=== PATIENT | male | born 1960 ===

== ENCOUNTER 2019-09-30 12:32 | Inpatient (IN) | payer OTHER ==
[~2019-09-30] VITALS: Ht 175.3 cm; Wt 97.1 kg
[~2019-09-30 12:32] MED LIST: BACITRACIN 50,000 UNIT ONE; BUPIVACAINE/PF-EPI 0.5% 1:200K ONE; HYDR-3240 PO; LISI-167 PO; METF500T17 PO; THROMBIN 20,000 UNIT VIAL TP ONE
[2019-09-30] MEDS ORDERED: LACTATED RINGERS 1,000 ML IV SCH (13:54)
[2019-09-30] MEDS ORDERED: PROPOFOL 50 ML ONE ×4 (13:57→18:20)
[2019-09-30] MEDS ORDERED: MIDAZOLAM 1 MG/ML, 2ML ONE (13:57)
[2019-09-30] MEDS ORDERED: FENTANYL PF 250 MCG/5ML ONE ×2 (13:57→16:21)
[2019-09-30] MEDS ORDERED: CHLORHEXIDINE 15 ML UDC MM ONE (14:00)
[2019-09-30] MEDS ORDERED: ACETAMINOPHEN 500 MG TABLET PO ONE (14:00)
[2019-09-30] MEDS ORDERED: GABAPENTIN 300 MG CAPSULE PO ONE (14:00)
[2019-09-30] MEDS ORDERED: NEOSTIGMINE 1 MG/ML, 10ML ONE (14:01)
[2019-09-30] MEDS ORDERED: GLYCOPYRROLATE 0.2MG/1ML, 5ML ONE (14:01)
[2019-09-30] MEDS ORDERED: PROPOFOL 10 MG/ML, 20ML ONE (14:01)
[2019-09-30] MEDS ORDERED: ROCURONIUM 10MG/ML,5ML ONE (14:01)
[2019-09-30] MEDS ORDERED: CEFAZOLIN 1,000 MG ONE (14:01)
[2019-09-30] MEDS ORDERED: CHLORHEXIDINE 15 ML UDC ONE (14:06)
[2019-09-30] MEDS ORDERED: hydrALAzine 20 MG/ML, 1ML IV PRN (15:30)
[2019-09-30] MEDS ORDERED: morphine SULFATE 10 MG/ML, 1ML IVPush PRN (15:30)
[2019-09-30] MEDS ORDERED: LABETALOL 5MG/ML, 20ML IV PRN (15:30)
[2019-09-30] MEDS ORDERED: OXYcodone 5 MG/5 ML ORAL.SOL UDC PO PRN (15:30)
[2019-09-30] MEDS ORDERED: FENTANYL PF 100 MCG/2ML IV PRN (15:30)
[2019-09-30] MEDS ORDERED: HYDROmorphone 1 MG/ML, 1ML INJ IVPush PRN (15:30)
[2019-09-30] MEDS ORDERED: ONDANSETRON 2MG/ML, 2ML IVPush PRN (15:30)
[2019-09-30] MEDS ORDERED: MEPERIDINE/PF 25MG/0.5ML IVPush PRN (15:30)
[2019-09-30] MEDS ORDERED: PHENYLEPHRINE 10 MG/ML ONE (15:55)
[2019-09-30] MEDS ORDERED: SUCCINYLCHOLINE 20 MG/ML, 10ML ONE (18:20)
[2019-09-30] MEDS ORDERED: FENTANYL PF 100 MCG/2ML ONE ×2 (18:44→20:37)
[2019-09-30] MEDS ORDERED: HYDROmorphone PCA 30 MG/30 ML IV PRN (20:30)
[2019-09-30] MEDS ORDERED: OXYcodone 5 MG/5 ML ORAL.SOL UDC ONE (20:37)
[2019-09-30] MEDS ORDERED: HYDROmorphone 1 MG/ML, 1ML INJ ONE (20:37)
[2019-09-30] MEDS ORDERED: METHOCARBAMOL 1,000 MG in DEXTROSE 5% 100 ML IV ONE ×2 (21:00→23:30)
[2019-09-30] MEDS ORDERED: METHOCARBAMOL 1000MG/10 ML IVPB PRN (21:00)
[2019-09-30] MEDS ORDERED: ZOLPIDEM 5MG TABLET PO PRN (21:00)
[2019-09-30 21:51] VITALS: BP 128/86
[2019-09-30] MEDS ORDERED: DIPHENHYDRAMINE 50 MG/ML, 1ML IM PRN (23:30)
[2019-09-30] MEDS ORDERED: MAGNESIUM HYDROXIDE 8%, 30ML UDC PO PRN (23:30)
[2019-09-30] MEDS ORDERED: DIPHENHYDRAMINE 25 MG CAPSULE PO PRN (23:30)
[2019-09-30] MEDS ORDERED: HYDROcodone/APAP 5/325 TABLET PO PRN (23:30)
[2019-09-30] MEDS ORDERED: ONDANSETRON 2MG/ML, 2ML IV PRN (23:30)
[2019-09-30] MEDS ORDERED: PROMETHAZINE 25 MG/ML, 1ML IM PRN (23:30)
[2019-09-30] MEDS ORDERED: HYDROmorphone 2 MG/ML, 1ML IM PRN (23:30)
[2019-09-30] MEDS ORDERED: HYDROmorphone 2MG TABLET PO PRN (23:30)
[2019-09-30] MEDS ORDERED: BISACODYL 10 MG SUPP PR PRN (23:30)
[2019-09-30] MEDS ORDERED: DIPHENHYDRAMINE 50 MG/ML, 1ML IVPush PRN (23:30)
[2019-09-30] MEDS: LABETALOL 5MG/ML, 20ML IV SCH (23:40)
[2019-09-30] MEDS: NS + 20MEQ KCL 1,000 ML IV SCH (23:59)
[2019-10-01] MEDS: CEFAZOLIN PMX 1GM/50ML 50 ML IVPB SCH ×3 (00:13→17:22)
[2019-10-01 00:15] VITALS: BP 114/76
[2019-10-01 03:12] VITALS: BP 129/83
[2019-10-01 06:00] LABS: BASOPHILS # (AUTO) 0.01 x10^3/uL (0-0.1); BASOPHILS % (AUTO) 0 % (0-1); EOSINOPHILS # (AUTO) 0.06 x10^3/uL (0-0.4); EOSINOPHILS % (AUTO) 1 % (1-7); LYMPHOCYTES # (AUTO) 0.74 x10^3/uL (1-3.4); LYMPHOCYTES % (AUTO) 7 % (22-44); MD NO; MEAN CORPUSCULAR HEMOGLOBIN 28.3 pg (27.5-34.5); MEAN CORPUSCULAR HGB CONC 32.8 g/dL (33.2-36.2); MEAN CORPUSCULAR VOLUME 86.3 fL (81-97); MEAN PLATELET VOLUME 8.8 fL (7.4-10.4); MONOCYTES # (AUTO) 0.82 x10^3/uL (0.2-0.8); MONOCYTES % (AUTO) 7 % (2-9); NEUTROPHILS # (AUTO) 9.79 x10^3/uL (1.8-6.8); NEUTROPHILS % (AUTO) 86 % (42-75); PLATELET COUNT 153 x10^3/uL (130-400); RED BLOOD COUNT 4.61 x10^6/uL (4.38-5.82); RED CELL DISTRIBUTION WIDTH 14.5 % (9.4-14.8)
[2019-10-01] MEDS: ENOXAPARIN 40 MG/0.4 ML SQ SCH (06:01)
[2019-10-01 06:08] LABS: ALANINE AMINOTRANSFERASE 43 U/L (12-78); ALBUMIN 3.2 g/dL (3.4-5.0); ANION GAP 8 mmol/L (5-15); CALCIUM 7.9 mg/dL (8.5-10.1); CHLORIDE 105 mmol/L (98-107); CREATININE 1.04 mg/dL (0.7-1.3)
[2019-10-01 06:11] LABS: ALKALINE PHOSPHATASE 61 U/L (45-117); BILIRUBIN,TOTAL 0.9 mg/dL (0.2-1.0); TOTAL PROTEIN 6.5 g/dL (6.4-8.2)
[2019-10-01 07:02] VITALS: BP 135/79
[2019-10-01] MEDS: LABETALOL 5MG/ML, 20ML IV SCH ×2 (08:30→15:30)
[2019-10-01] MEDS: INSULIN REGULAR 100 UNITS/ML, 3ML VIAL SQ-INSULIN SCH ×4 (09:06→20:53)
[2019-10-01] MEDS: METHOCARBAMOL 750 MG in DEXTROSE 5% 100 ML IV SCH ×2 (10:13→18:08)
[2019-10-01] MEDS: SENNA/DOCUSATE TABLET PO SCH (10:25)
[2019-10-01] MEDS: NS + 20MEQ KCL 1,000 ML IV SCH ×2 (11:32→22:48)
[2019-10-01 12:18] VITALS: BP 153/90
[2019-10-01] MEDS: LISINOPRIL 10 MG TABLET PO SCH (13:14)
[2019-10-01 19:24] VITALS: BP 138/90
[2019-10-02 01:18] VITALS: BP 125/77
[2019-10-02] MEDS: METHOCARBAMOL 750 MG in DEXTROSE 5% 100 ML IV SCH ×3 (01:51→18:06)
[2019-10-02] MEDS: ENOXAPARIN 40 MG/0.4 ML SQ SCH (05:58)
[2019-10-02] MEDS: INSULIN REGULAR 100 UNITS/ML, 3ML VIAL SQ-INSULIN SCH ×4 (06:00→21:00)
[2019-10-02 07:58] VITALS: BP 135/80
[2019-10-02 10:30] VITALS: BP 144/89
[2019-10-02] MEDS: SENNA/DOCUSATE TABLET PO SCH (10:33)
[2019-10-02] MEDS: HYDROcodone/APAP 10/325 MG TABLET PO PRN ×4 (10:33→22:13)
[2019-10-02] MEDS: LISINOPRIL 10 MG TABLET PO SCH (10:34)
[2019-10-02] MEDS: NS + 20MEQ KCL 1,000 ML IV SCH ×2 (11:03→23:06)
[2019-10-02 13:22] VITALS: BP 138/85
[2019-10-02 20:20] VITALS: BP 162/82
[2019-10-03 01:24] VITALS: BP 154/90
[2019-10-03] MEDS: HYDROcodone/APAP 10/325 MG TABLET PO PRN ×6 (02:19→23:52)
[2019-10-03] MEDS: METHOCARBAMOL 750 MG in DEXTROSE 5% 100 ML IV SCH (02:19)
[2019-10-03] MEDS: ENOXAPARIN 40 MG/0.4 ML SQ SCH (06:52)
[2019-10-03] MEDS: INSULIN REGULAR 100 UNITS/ML, 3ML VIAL SQ-INSULIN SCH ×4 (06:55→21:00)
[2019-10-03 08:00] VITALS: BP 130/76
[2019-10-03] MEDS: METHOCARBAMOL 750 MG TABLET PO SCH ×2 (10:16→18:24)
[2019-10-03] MEDS: LISINOPRIL 10 MG TABLET PO SCH (10:17)
[2019-10-03] MEDS: SENNA/DOCUSATE TABLET PO SCH (10:17)
[2019-10-03] MEDS: NS + 20MEQ KCL 1,000 ML IV SCH ×2 (11:09→22:10)
[2019-10-03] MEDS ORDERED: GOLYTELY 4,000ML ORAL.SOL PO ONE (11:30)
[2019-10-03] MEDS: MAGNESIUM HYDROXIDE 8%, 30ML UDC PO SCH (12:40)
[2019-10-03 12:51] VITALS: BP 146/72
[2019-10-03 12:59] LABS: ANION GAP 7 mmol/L (5-15); CALCIUM 8.1 mg/dL (8.5-10.1); CHLORIDE 99 mmol/L (98-107); CREATININE 0.76 mg/dL (0.7-1.3)
[2019-10-03 20:15] VITALS: BP 153/94
[2019-10-04] MEDS: METHOCARBAMOL 750 MG TABLET PO SCH ×3 (01:03→18:14)
[2019-10-04 03:55] VITALS: BP 190/102
[2019-10-04 05:14] VITALS: BP 152/83
[2019-10-04] MEDS: INSULIN REGULAR 100 UNITS/ML, 3ML VIAL SQ-INSULIN SCH ×4 (06:13→21:00)
[2019-10-04] MEDS ORDERED: BACITRACIN OINT 500U/GM, 15 GM ONE (07:06)
[2019-10-04] MEDS ORDERED: THROMBIN 20,000 UNIT VIAL TP ONE (07:06)
[2019-10-04] MEDS ORDERED: BUPIVACAINE/PF-EPI 0.5% 1:200K ONE (07:06)
[2019-10-04] MEDS ORDERED: BACITRACIN 50,000 UNIT ONE (07:06)
[2019-10-04] MEDS ORDERED: FENTANYL PF 250 MCG/5ML ONE (07:20)
[2019-10-04] MEDS ORDERED: CHLORHEXIDINE 15 ML UDC ONE (07:34)
[2019-10-04] MEDS ORDERED: SUGAMMADEX 200 MG/2 ML IVPush ONE (07:44)
[2019-10-04] MEDS ORDERED: PHENYLEPHRINE 10 MG/ML ONE (07:44)
[2019-10-04] MEDS ORDERED: LABETALOL 5MG/ML, 20ML IV PRN (08:30)
[2019-10-04] MEDS ORDERED: METHOCARBAMOL 1,000 MG in DEXTROSE 5% 100 ML IV PRN (08:30)
[2019-10-04] MEDS ORDERED: OXYcodone 5 MG/5 ML ORAL.SOL UDC PO PRN (08:30)
[2019-10-04] MEDS ORDERED: ALBUTEROL SULFATE 2.5 MG/3 ML NPPB PRN (08:30)
[2019-10-04] MEDS ORDERED: PROMETHAZINE 25 MG/ML, 1ML IVPush PRN (08:30)
[2019-10-04] MEDS ORDERED: MIDAZOLAM 1 MG/ML, 2ML IV PRN (08:30)
[2019-10-04] MEDS ORDERED: MEPERIDINE/PF 25MG/0.5ML IVPush PRN (08:30)
[2019-10-04] MEDS ORDERED: ACETAMINOPHEN 325 MG TABLET PO PRN (08:30)
[2019-10-04] MEDS ORDERED: BUPIVACAINE/PF-EPI 0.5% 1:200K INFIL ONE (08:32)
[2019-10-04] MEDS ORDERED: LIDOCAINE-MPF 2% ,5ML ONE (08:52)
[2019-10-04] MEDS ORDERED: DEXAMETHASONE 4 MG/ML, 1ML ONE (08:53)
[2019-10-04] MEDS ORDERED: NEOSTIGMINE 1 MG/ML, 10ML ONE (08:53)
[2019-10-04] MEDS ORDERED: ONDANSETRON 2MG/ML, 2ML ONE (08:53)
[2019-10-04] MEDS ORDERED: PROPOFOL 10 MG/ML, 20ML ONE (08:53)
[2019-10-04] MEDS ORDERED: GLYCOPYRROLATE 0.2MG/1ML, 5ML ONE (08:53)
[2019-10-04] MEDS ORDERED: ROCURONIUM 10MG/ML,5ML ONE (08:53)
[2019-10-04] MEDS ORDERED: SUCCINYLCHOLINE 20 MG/ML, 10ML ONE (08:53)
[2019-10-04] MEDS ORDERED: CEFAZOLIN 1,000 MG ONE (08:53)
[2019-10-04] MEDS: SENNA/DOCUSATE TABLET PO SCH (08:55)
[2019-10-04] MEDS: MAGNESIUM HYDROXIDE 8%, 30ML UDC PO SCH (08:55)
[2019-10-04] MEDS: LISINOPRIL 10 MG TABLET PO SCH (08:55)
[2019-10-04] MEDS ORDERED: FENTANYL PF 100 MCG/2ML ONE (09:48)
[2019-10-04] MEDS ORDERED: OXYcodone 5 MG/5 ML ORAL.SOL UDC ONE (09:48)
[2019-10-04] MEDS: FENTANYL PF 100 MCG/2ML IV PRN ×2 (09:50→10:00)
[2019-10-04] MEDS ORDERED: HYDROmorphone 1 MG/ML, 1ML INJ ONE (10:13)
[2019-10-04] MEDS: HYDROmorphone 1 MG/ML, 1ML INJ IVPush PRN ×2 (10:15→10:20)
[2019-10-04] MEDS: NS + 20MEQ KCL 1,000 ML IV SCH ×2 (11:15→23:18)
[2019-10-04] MEDS: HYDROcodone/APAP 10/325 MG TABLET PO PRN ×3 (14:52→23:45)
[2019-10-04 15:45] VITALS: BP 157/98
[2019-10-04] MEDS: CEFAZOLIN 2,000 MG in SODIUM CHLORIDE 0.9% 50 ML IV SCH (16:55)
[2019-10-04 19:03] VITALS: BP 141/82
[2019-10-05] MEDS: CEFAZOLIN 2,000 MG in SODIUM CHLORIDE 0.9% 50 ML IV SCH ×2 (00:57→08:29)
[2019-10-05 01:02] VITALS: BP 109/65
[2019-10-05] MEDS: HYDROcodone/APAP 10/325 MG TABLET PO PRN ×3 (03:31→14:29)
[2019-10-05] MEDS: METHOCARBAMOL 750 MG TABLET PO SCH ×2 (03:31→11:56)
[2019-10-05] MEDS: INSULIN REGULAR 100 UNITS/ML, 3ML VIAL SQ-INSULIN SCH ×2 (07:00→11:00)
[2019-10-05 07:54] VITALS: BP 137/81
[2019-10-05] MEDS ORDERED: ENOXAPARIN 30 MG/0.3 ML SQ SCH (08:00)
[2019-10-05] MEDS: SENNA/DOCUSATE TABLET PO SCH (08:28)
[2019-10-05] MEDS: LISINOPRIL 10 MG TABLET PO SCH (08:28)
[2019-10-05] MEDS: MAGNESIUM HYDROXIDE 8%, 30ML UDC PO SCH (08:29)
[2019-10-05] MEDS ORDERED: GABAPENTIN 300 MG CAPSULE PO SCH (08:30)
[2019-10-05] MEDS ORDERED: HYDR-3246 PO (09:23)
[2019-10-05] MEDS ORDERED: METH750T87 PO (09:24)
[2019-10-05] MEDS ORDERED: GABA600T7 PO (09:26)
[2019-10-05] MEDS ORDERED: MAGN400O7 PO (09:27)
[2019-10-05] MEDS: NS + 20MEQ KCL 1,000 ML IV SCH (11:21)
[2019-10-05 14:09] VITALS: BP 130/70
== END 2019-10-05 15:00 | disposition home health service (06) | DRG 460 ==
LOC: ORIP 13:37 → 4NE 21:02 → DCLOUNGE 10-05 14:55
PROVIDERS: ADMIT Neurological Surgery; ATTEND Neurological Surgery
PROC: 01NB0ZZ Release Lumbar Nerve, Open Approach (ICD-10-PCS; 2019-09-30)
PROC: 0SG00AJ Fusion of Lumbar Vertebral Joint with Interbody Fusion Device, Posterior Approach, Anterior Column, Open Approach (ICD-10-PCS; principal; 2019-09-30 15:30)
PROC: 0SB20ZZ Excision of Lumbar Vertebral Disc, Open Approach (ICD-10-PCS; 2019-10-04)
PROC: 0SG30A0 Fusion of Lumbosacral Joint with Interbody Fusion Device, Anterior Approach, Anterior Column, Open Approach (ICD-10-PCS; 2019-10-04)
DX: M48.061 Spinal stenosis, lumbar region without neurogenic claudication (principal); M48.07 Spinal stenosis, lumbosacral region; M54.16 Radiculopathy, lumbar region; E11.9 Type 2 diabetes mellitus without complications; E66.9 Obesity, unspecified; M21.372 Foot drop, left foot; W17.89XA Other fall from one level to another, initial encounter; Z79.4 Long term (current) use of insulin
CPT/HCPCS: 36415; 72100; 74018; J3490; 80048; 80053; 82962; 85025; 86850; 86900; 95938; 95941; C1713; C1776; G0378; J0690; J1100; J1170; J1650; J1815; J2250; J2405; J2704; J2710; J3010; J3480; C1762; C1763; C1769; J0330; J2370; J2800; J7120; U0001-CS